=== PATIENT | female | born 2000 | race African-American/Black ===

== ENCOUNTER 2019-07-12 18:59 | Emergency (ER) | payer OTHER ==
[~2019-07-12] VITALS: Ht 157.5 cm; Wt 65.0 kg
[2019-07-12 19:02] VITALS: BP 125/76; TEMP 98.1
[2019-07-12 19:59] LABS: COLLECTION METHOD CLEAN CATCH
[2019-07-12] MEDS ORDERED: PHENERGAN 25 TA25 MG PO (20:08)
[2019-07-12 20:13] LABS: MUCOUS Present /lpf; PH 7 (5-8); URINE APPEARANCE Hazy; URINE BACTERIA Moderate /hpf; URINE BILIRUBIN Negative (NEGATIVE); URINE BLOOD Negative (NEGATIVE); URINE COLOR Yellow; URINE GLUCOSE Negative (NEGATIVE); URINE KETONE Trace (NEGATIVE); URINE LEUKOCYTE ESTERASE Negative (NEGATIVE); URINE NITRATE Positive (NEGATIVE); URINE PROTEIN(semi-quant) Negative (NEGATIVE); URINE RBC 0-2 /hpf
[2019-07-12] MEDS ORDERED: CEFTIN 250250 MG/TAB PO (20:38)
[2019-07-12 20:43] VITALS: PULSE 63
== END 2019-07-12 20:42 | disposition home or self-care (01) ==
LOC: COL.ER 18:59
PROVIDERS: Nurse Practitioner
DX: O21.1 Hyperemesis gravidarum with metabolic disturbance (principal); Z3A.00 Weeks of gestation of pregnancy not specified
CPT/HCPCS: J2550